=== PATIENT | female | born 1990 | race Caucasian/White ===

== ENCOUNTER 2017-03-03 22:27 | Emergency (ER) | payer MEDICAID ==
--- NOTE | 2017-03-03 22:41 | ER Document Report ---
ED General - General TRAVEL OUTSIDE OF THE [place] IN LAST 30 DAYS: No <YOLANDE WALDROP - Last Filed: 03/04/17 03:09> <CAMERON GROVER - Last Filed: 03/04/17 13:59> <DALLAS KELLEY - Last Filed: 03/04/17 14:28> - General Chief Complaint: Possible Overdose Stated Complaint: OVERDOSE Time Seen by Provider: 03/03/17 22:38 Notes: Patient is a 27-year-old female who presents with complaint of overdosing on melatonin. She said she did this after an argument with her . She says that she was just try to go to sleep. She says she did vomit after taking some the medications. Has been told paramedics that it was a almost completely new bottle of melatonin. The bottle had originially 120 tablets. The says there was probably only 10-20 missing and therefore they suspect she took around 110 mg melatonin tablets. Patient says she does not think it was that many as she just before the bottle to her hand and threw the pills into her mouth. Patient does have history of depression and used to take depression medication for this but she says that she lost her insurance and therefore stopped taking it. She recently got her insurance back but says that she just takes Adderall now and not the depression medication. She herself denies being suicidal. She has no other complaints at this time. (YOLANDE WALDROP) - Related Data Allergies/Adverse Reactions: morphine Allergy (Intermediate, Verified 10/09/15 23:56) Generalized rash Past Medical History - Social History Smoking Status: Unknown if Ever Smoked Frequency of alcohol use: None Drug Abuse: None Family History: Reviewed & Not Pertinent - Past Medical History Cardiac Medical History: Denies: Hx Coronary Artery Disease, Hx Heart Attack, Hx Hypertension Pulmonary Medical History: Denies: Hx Asthma, Hx Bronchitis, Hx COPD, Hx Pneumonia Neurological Medical History: Denies: Hx Cerebrovascular Accident, Hx Seizures Musculoskeltal Medical History: Denies Hx Arthritis - Immunizations Hx Diphtheria, Pertussis, Tetanus Vaccination: Yes <YOLANDE WALDROP - Last Filed: 03/04/17 03:09> Review of Systems <YOLANDE WALDROP - Last Filed: 03/04/17 03:09> <CAMERON GROVER - Last Filed: 03/04/17 13:59> <DALLAS KELLEY - Last Filed: 03/04/17 14:28> - Review of Systems Notes: My Normal Review Basic REVIEW OF SYSTEMS: CONSTITUTIONAL : Denies fever, chills, or sweats. Denies recent illness. EENT: Denies eye, ear, throat, or mouth pain or symptoms. Denies nasal or sinus congestion. CARDIOVASCULAR: Denies chest pain. RESPIRATORY: Denies cough, cold, or chest congestion. Denies shortness of breath, difficulty breathing, or wheezing. GASTROINTESTINAL: Denies abdominal pain. Denies nausea, vomiting, or diarrhea. Denies constipation. Last BM: MUSCULOSKELETAL: Denies neck or back pain or joint pain or swelling. SKIN: Denies rash or skin lesions. NEUROLOGICAL: Denies altered mental status or loss of consciousness. Denies headache. Denies weakness or paralysis or loss of use of either side. Denies problems with gait or speech. Denies sensory or motor loss. PSYCHIATRIC: Depression. Overdose. ALL OTHER SYSTEMS REVIEWED AND NEGATIVE. (YOLANDE WALDROP) Physical Exam <YOLANDE WALDROP - Last Filed: 03/04/17 03:09> <CAMERON GROVER - Last Filed: 03/04/17 13:59> <DALLAS KELLEY - Last Filed: 03/04/17 14:28> - Vital signs Vitals: Pulse Ox 99 03/03/17 23:55 - Notes Notes: General Appearance: Well nourished, alert, cooperative, no acute distress, no obvious discomfort. Patient is awake, alert, and not somnolent. Vitals: reviewed, See vital signs table. Head: no swelling or tenderness to the head Eyes: PERRL, EOMI, Conjuctiva clear Mouth: No decreasd moisture Lungs: No wheezing, No rales, No rhonci, No accessory muscle use, good air exchange bilaterally. Heart: Normal rate, Regular rythm, No murmur, no rub Abdomen: Normal BS, soft, No rigidity, No abdominal tenderness, No guarding, no rebound, no abdominal masses, no organomegaly Extremities: strength 5/5 in all extremities, good pulses in all extremities, no swelling or tenderness in the extremities, no edema. Skin: warm, dry, appropriate color, no rash Neuro: speech clear, oriented x 3, normal affect, responds appropriately to questions. Cranial nerves II through XII are intact. Distal sensation intact. Patient moves all extremities without difficulty. (YOLANDE WALDROP) Course - Laboratory Result Diagrams: 03/03/17 22:44 03/03/17 22:44 <YOLANDE WALDROP - Last Filed: 03/04/17 03:09> - Laboratory Result Diagrams: 03/03/17 22:44 03/03/17 22:44 <CAMERON GROVER - Last Filed: 03/04/17 13:59> - Laboratory Result Diagrams: 03/03/17 22:44 03/03/17 22:44 <DALLAS KELLEY - Last Filed: 03/04/17 14:28> - Re-evaluation Re-evalutation: 03/04/17 03:09 Patient has not been here for over 4 hours. She is been able to sleep but when I wake her up she is not at all somnolent and she looks well. I do not think she took as many melatonin pills as her or her reported. At this time is medically stable for psychiatric evaluation. Patient is voluntary. (YOLANDE WALDROP) - Vital Signs Vital signs: Temp Pulse Resp BP Pulse Ox 14 95/55 L 97 03/04/17 03:01 03/04/17 03:01 03/04/17 03:01 - Laboratory Laboratory results interpreted by me: 03/03/17 03/03/17 03/04/17 22:44 22:44 01:06 Hgb 10.2 L Hct 32.1 L MCV 75 L MCH 24.0 L MCHC 31.8 L RDW 16.2 H Glucose 124 H Total Bilirubin 0.1 L Urine Bilirubin MODERATE H Urine Urobilinogen 4.0 H Salicylates < 1.0 L Acetaminophen < 10 L - EKG Interpretation by Me Additional EKG results interpreted by me: 03/03/17 23:40 EKG is reviewed and interpreted by me. EKG shows normal sinus rhythm with rate of [address] segment elevation or depression. No ischemic T-wave inversions. [place] interval, QRS duration, QTc intervals are within normal range. ( YOLANDE WALDROP) Discharge <YOLANDE WALDROP - Last Filed: 03/04/17 03:09> <CAMERON GROVER - Last Filed: 03/04/17 13:59> <DALLAS KELLEY - Last Filed: 03/04/17 14:28> - Discharge Clinical Impression: Overdose Qualifiers: Encounter type: initial encounter Injury intent: intentional self-harm Qualified Code(s): T50.902A - Poisoning by unspecified drugs, medicaments and biological substances, intentional self-harm, initial encounter Depression Qualifiers: Depression Type: unspecified Qualified Code(s): F32.9 - Major depressive disorder, single episode, unspecified Condition: Stable Disposition: HOME, SELF-CARE Additional Instructions: DEPRESSION: Your evaluation reveals that you have mental depression. While symptoms may be vague, they often include disturbance of sleep, fatigue, loss of appetite , and general loss of interest in life. While depression may be a side effect of drugs, or a reaction to a major change in your life, many cases have no known cause. If depression is acute, and related to a major loss in your life, you can expect it to clear completely with time. If you have been depressed a long time , are prone to repeated bouts of depression or low mood, or have been thinking of suicide, get help. Depression can be treated with anti-depressant medication and counselling. Long-term depression will often take a few weeks to clear, even with appropriate medication. Follow-up care is important. FOLLOW-UP CARE: You are recommended to follow up with an out patient mental health provider of your choice in 3-5 days for your continued mental health treatment.~ If you experience worsening or a significant change in your symptoms, notify the physician immediately or return to the Emergency Department at any time for re- evaluation. Referrals: DALLAS HOLLAND, [Primary Care Provider] - Follow up as needed [facility] [Outside] - Follow up in 3-5 days
[2017-03-03 22:58] LABS: ABSOLUTE LYMPHOCYTES (AUTO) 1.7 10^3/uL (0.5-4.7); ABSOLUTE MONOCYTES (AUTO) 0.6 10^3/uL (0.1-1.4); ABSOLUTE NEUT (AUTO) 5.7 10^3/uL (1.7-8.2); BASOPHILS % (AUTO) 0.5 % (0-2); EOSINOPHILS % (AUTO) 0.6 % (0-6); HEMATOCRIT 32.1 % (36.0-47.0); HEMOGLOBIN 10.2 g/dL (12.0-15.5); MEAN CORPUSCULAR HGB CONC 31.8 g/dL (32.0-36.0); MEAN CORPUSCULAR VOLUME 75 fl (80-97); MONOCYTES % (AUTO) 7.8 % (3-13); PLATELET COUNT 320 10^3/uL (150-450); RED BLOOD COUNT 4.25 10^6/uL (3.72-5.28); RED CELL DISTRIBUTION WIDTH 16.2 % (11.5-14.0); SEGMENTED NEUTROPHILS % (AUTO) 70.1 % (42-78); TOTAL CELLS COUNTED % (AUTO) 100 %; WHITE BLOOD COUNT 8.1 10^3/uL (4.0-10.5)
[2017-03-03 23:10] LABS: ALANINE AMINOTRANSFERASE 24 U/L (9-52); ALBUMIN 4.5 g/dL (3.5-5.0); ALKALINE PHOSPHATASE 47 U/L (38-126); ANION GAP 14 (5-19); ASPARTATE AMINO TRANSFERASE 16 U/L (14-36); BILIRUBIN,DIRECT 0.1 mg/dL (0.0-0.4); BILIRUBIN,TOTAL 0.1 mg/dL (0.2-1.3); BLOOD UREA NITROGEN 10 mg/dL (7-20); CALCIUM 9.6 mg/dL (8.4-10.2); CARBON DIOXIDE 23 mmol/L (22-30); CHLORIDE 104 mmol/L (98-107); GLUCOSE 124 mg/dL (75-110); POTASSIUM 3.8 mmol/L (3.6-5.0); SODIUM 141.1 mmol/L (137-145); TOTAL PROTEIN 7.3 g/dL (6.3-8.2)
[2017-03-03 23:19] LABS: ACETAMINOPHEN < 10 ug/mL (10-30); ALCOHOL < 10 mg/dL (NONE DETECTED); SALICYLATE < 1.0 mg/dL (2.0-20.0)
[2017-03-04] MEDS ORDERED: PROPOFOL INJ 200 MG/20 ML VIAL IV ONE (01:10)
[2017-03-04 01:32] LABS: APPEARANCE,URINE CLEAR; BILIRUBIN,URINE MODERATE (NEGATIVE); COLOR,URINE YELLOW; GLUCOSE, URINE NEGATIVE (NEGATIVE); KETONES,URINE NEGATIVE (NEGATIVE); LEUKOCYTE ESTERASE,URINE NEGATIVE (NEGATIVE); NITRITE,URINE NEGATIVE (NEGATIVE); PROTEIN,URINE NEGATIVE (NEGATIVE); URINE SPECIFIC GRAVITY 1.026
[2017-03-04 01:37] LABS: URINE AMPHETAMINES SCREEN NEGATIVE; URINE BARBITURATES SCREEN NEGATIVE; URINE BENZODIAZEPINES SCREEN NEGATIVE; URINE COCAINE SCREEN NEGATIVE; URINE MARIJUANA (THC) SCREEN NEGATIVE; URINE METHADONE SCREEN NEGATIVE; URINE PHENCYCLIDINE SCREEN NEGATIVE
--- NOTE | 2017-03-04 09:25 | EKG REPORT ---
SEVERITY:- NORMAL ECG - SINUS RHYTHM : Confirmed by: Fiorella Flower 04-Mar-2017 09:23:56
--- NOTE | 2017-03-04 10:33 | ER Document Report ---
Doctor's Note Notes: 03/04/17 10:31 Rounds: Chart reviewed and patient interviewed. Initially sleeping quietly. Vital signs are all normal, except for a blood pressure this morning of 95/55. However, patient is not tachycardic. Her other vital signs have not shown a low blood pressure. Hemoglobin is 10.2 without any evidence of blood loss. Patient denies feeling suicidal. She says she only took the melatonin pills to help her get to sleep. Did not take any other medications. Denies feeling suicidal last night or this morning. Patient appears to be medically stable for transfer or discharge. Cyndie Beasley MD
--- NOTE | 2017-03-04 13:59 | PSYCHOLOGICAL NOTE ---
Psych Note - Psych Note Psych Note: * Reason for Consult: suspected Overdose * Consent Permissions: Rojas Sanchez, spouse, Patient is a 27-year-old female who presents with complaint of overdosing on melatonin. She said she did this after an argument with her . She says that she was just try to go to sleep. She says she did vomit after taking some the medications. The says there was probably only 10-20 missing. Patient says she does not think it was that many. Patient does have history of depression and used to take depression medication for this but she says that she lost her insurance and therefore stopped taking it. She recently got her insurance back but says that she just takes Adderall now and not the depression medication. She herself denies being suicidal. Evaluation: Patient states that she got into an argument and took a "bunch" of melatonin. She states that she just reports some in her hand but denies this was an attempt at suicide. She states she was just trying to get some sleep she has been having difficulty sleeping in the last few days. She continues state that her saw her do this and called EMS. Patient states that she has a history of depression however denies any past suicide attempts or inpatient psychiatric treatment. Patient is alert and oriented to person, place, time and circumstance. Mood is euthymic with congruent affect as evidenced by smiling and laughing with clinician. Patient denies suicide and homicidal ideation. Delusions are absent and behavour is not congruent with intact reality based presentation i.e. organized, linear, rational thinking. Eye contact was well-maintained. Intellectual abilities appear to be within the average range. Attention and concentration were good. Insight, judgment, impulse control are good. Chart Review Conducted: Attending evening physician noted Patient has not been here for over 4 hours. She is been able to sleep but when I wake her up she is not at all somnolent and she looks well. I do not think she took as many melatonin pills as her or her reported. 311 (F32.9) unspecified depressive disorder per history provided by patient Impression\\plan: Patient is considered psychiatrically clear. Patient does not meet IVC criteria per [place] GS 122C. Patient denies suicidal and homicidal ideation. Patient states she took the melatonin to get some sleep, not an attempt at suicide. She reports her thought she took more that she did and called EMS. Patient is recommended to follow up with out patient mental health services. Dr. Rubin was consulted on the care and management of this patient; attending physician is in agreement with recommendations and disposition.
[2017-03-04 14:35] VITALS: BP 105/52
== END 2017-03-04 14:36 | disposition home or self-care (01) ==
LOC: ER 22:27
DX: T50.992A Poisoning by other drugs, medicaments and biological substances, intentional self-harm, initial encounter (principal); F32.9 Major depressive disorder, single episode, unspecified; Z63.0 Problems in relationship with spouse or partner; Z88.5 Allergy status to narcotic agent
CPT/HCPCS: 36415; 80053; 80307; 81001; 85025; 93005; 93010; 99285

== ENCOUNTER 2019-03-18 20:39 | Emergency (ER) | payer BC, MEDICAID ==
--- NOTE | 2019-03-18 21:34 | ER Document Report ---
ED General - General Chief Complaint: Passed Out Prior to Arrival Stated Complaint: FAINTED Time Seen by Provider: 03/18/19 21:24 Primary Care Provider: DALLAS HOLLAND DO [Primary Care Provider] - Follow up as needed Mode of Arrival: Medic Information source: Patient Notes: 29-year-old female arrives by EMS after she was walking in the kitchen and felt dizzy and passed out. She awoke to find her for children and [id number] around her. Patient reports she had symptoms of urinary pressure and therefore went to the bathroom walking on her own with some shaking legs. She did vomit x1 patient reports since October 2017 she been having symptoms of paroxysmal cough and near syncopal episodes. Patient reports for the last 3 years he been taking Adderall for ADHD and also smoking marijuana to help her nerves after going off of Ativan. Patient reports she was passed out for approximately 60 seconds. She is now awake alert oriented x4 and is a good historian. She reports she has had at least 5 vomitings for the last 2 to 3 days. Patient reports she is not and has not missed any periods and has had her tubes tied. Advised her we will still get a urinary hCG. Patient reports the symptoms have been worked up by her PMD to include being on steroids x2 in the past. She says 24 hours after beginning steroids her symptoms jamarcus. As soon as the steroids are completed the symptoms return. TRAVEL OUTSIDE OF THE [place] IN LAST 30 DAYS: No - HPI Onset: Just prior to arrival Onset/Duration: Sudden Quality of pain: No pain Severity: Severe Pain Level: 1 Associated symptoms: Nonproductive cough, Other - She reports both her sister and father have thyroid disease and she has some hypothyroid history. Exacerbated by: Movement Relieved by: Denies Similar symptoms previously: Yes Recently seen / treated by doctor: Yes - And has been seen by her personal doctor and worked up for the symptoms. - Related Data Allergies/Adverse Reactions: morphine Allergy (Intermediate, Verified 10/09/15 23:56) Generalized rash Past Medical History - General Information source: Patient, Emergency Med Personnel - [facility] was initial pr esrobin then patient gave additional history. This was upon presentation to room #1 via [facility] - Social History Smoking Status: Current Some Day Smoker Cigarette use (# per day): Yes - Still smokes marijuana Chew tobacco use (# tins/day): No Smoking Education Provided: Yes Frequency of alcohol use: None Drug Abuse: Marijuana Lives with: Family Family History: Reviewed & Not Pertinent Patient has suicidal ideation: No Patient has homicidal ideation: No - Past Medical History Cardiac Medical History: Denies: Hx Coronary Artery Disease, Hx Heart Attack, Hx Hypertension Pulmonary Medical History: Reports: Hx Asthma Denies: Hx Bronchitis, Hx COPD, Hx Pneumonia Neurological Medical History: Denies: Hx Cerebrovascular Accident, Hx Seizures Renal/ Medical History: Denies: Hx Peritoneal Dialysis Musculoskeletal Medical History: Denies Hx Arthritis Psychiatric Medical History: Reports: Hx Depression - Immunizations Hx Diphtheria, Pertussis, Tetanus Vaccination: Yes Review of Systems - Review of Systems Constitutional: Malaise EENT: No symptoms reported Cardiovascular: No symptoms reported Respiratory: Cough Gastrointestinal: Nausea, Vomiting, Other - Patient is status post gallbladder resection Genitourinary: Other - Patient has a history of HPV but has not been checked for HPV polyps over her laryngeal area; I advised her to follow-up with ear nose throat in order to evaluate for this particular problem considering her sy mptoms. Physical Exam - Vital signs Vitals: Resp Pulse Ox 10 L 100 03/18/19 20:48 03/18/19 20:48 Interpretation: Normal - General General appearance: Appears well - And does have bilaterally dilated pupils 10 mm early In distress: None - HEENT Head: Normocephalic Eyes: Normal Conjunctiva: Normal Cornea: Normal Extraocular movements intact: Yes Eyelashes: Normal Pupils: Dilated Ears: Normal External canal: Normal Tympanic membrane: Normal Sinus: Normal Mouth/Lips: Other - Geographic tongue with bilateral tonsillar edema Pharynx: Normal Neck: Normal - Respiratory Respiratory status: Respiratory distress, Other - Accessible cough - Cardiovascular Rhythm: Regular Heart sounds: Normal auscultation Murmur: No Friction rub: No Solitario's crunch: No - Abdominal Inspection: Normal Distension: No distension Bowel sounds: Normal Tenderness: Nontender - Extremities General upper extremity: Normal inspection General lower extremity: Normal inspection Shoulder: Normal Arm: Normal Elbow: Normal Forearm: Normal Wrist: Normal Hand: Normal Hip: Normal Thigh: Normal Knee: Normal Calf: Normal Ankle: Normal Foot: Normal - Neurological Neuro grossly intact: Yes Cognition: Normal Orientation: AAOx4 Krista Coma Scale Eye Opening: Spontaneous Gwinner Coma Scale Verbal: Oriented G[place] Coma Scale Motor: Obeys Commands Krista Coma Scale Total: 15 Speech: Normal Cranial nerves: Normal Cerebellar coordination: Normal 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 - Psychological Associated symptoms: Normal affect - Skin Skin Temperature: Warm Skin Moisture: Dry Course - Vital Signs Vital signs: Temp Pulse Resp BP Pulse Ox 98.0 F 67 20 111/69 98 03/18/19 20:50 03/18/19 21:25 03/18/19 23:42 03/18/19 23:42 03/18/19 23:42 - Laboratory Result Diagrams: 03/18/19 21:20 03/18/19 21:20 Laboratory results interpreted by me: 03/18/19 03/18/19 21:20 21:20 MCH 26.6 L RDW 15.1 H Sodium 136.9 L Chloride 97 L BUN 5 L - Diagnostic Test Radiology reviewed: Reports reviewed - EKG Interpretation by Me EKG shows normal: Sinus rhythm Rate: Normal Critical Care Note - Critical Care Note Total time excluding time spent on procedures (mins): 90 Comments: Advised patient of her laboratory and x-ray CT findings; here to understand these findings. Discharge - Discharge Clinical Impression: Atypical syncope, Hypotension, Marijuana use Disposition: HOME, SELF-CARE Additional Instructions: Follow-up with ENT because of history of HPV and your coughing sensations. Referrals: DALLAS HOLLAND DO [Primary Care Provider] - Follow up as needed
[2019-03-18 21:37] LABS: ABSOLUTE EOSINOPHILS # (AUTO) 0.3 10^3/uL (0.0-0.6); ABSOLUTE LYMPHOCYTES (AUTO) 1.7 10^3/uL (0.5-4.7); ABSOLUTE MONOCYTES (AUTO) 0.8 10^3/uL (0.1-1.4); ABSOLUTE NEUT (AUTO) 6.4 10^3/uL (1.7-8.2); BASOPHILS % (AUTO) 0.4 % (0-2); EOSINOPHILS % (AUTO) 3.1 % (0-6); HEMATOCRIT 37.4 % (36.0-47.0); HEMOGLOBIN 12.4 g/dL (12.0-15.5); LYMPHOCYTES % (AUTO) 18.2 % (13-45); MEAN CORPUSCULAR HEMOGLOBIN 26.6 pg (27.0-33.4); MEAN CORPUSCULAR HGB CONC 33.2 g/dL (32.0-36.0); MEAN CORPUSCULAR VOLUME 80 fl (80-97); MONOCYTES % (AUTO) 8.4 % (3-13); PLATELET COUNT 312 10^3/uL (150-450); RED BLOOD COUNT 4.67 10^6/uL (3.72-5.28); RED CELL DISTRIBUTION WIDTH 15.1 % (11.5-14.0); SEGMENTED NEUTROPHILS % (AUTO) 69.9 % (42-78); TOTAL CELLS COUNTED % (AUTO) 100 %; WHITE BLOOD COUNT 9.1 10^3/uL (4.0-10.5)
[2019-03-18 21:56] LABS: ALBUMIN 4.7 g/dL (3.5-5.0); ALKALINE PHOSPHATASE 52 U/L (38-126); ANION GAP 13 (5-19); ASPARTATE AMINO TRANSFERASE 27 U/L (14-36); BILIRUBIN,DIRECT 0.3 mg/dL (0.0-0.4); BILIRUBIN,TOTAL 0.3 mg/dL (0.2-1.3); BLOOD UREA NITROGEN 5 mg/dL (7-20); CALCIUM 10.2 mg/dL (8.4-10.2); CARBON DIOXIDE 27 mmol/L (22-30); CHLORIDE 97 mmol/L (98-107); CREATINE KINASE 46 U/L (30-135); GLUCOSE 90 mg/dL (75-110); POTASSIUM 3.6 mmol/L (3.6-5.0)
--- NOTE | 2019-03-18 22:45 | RADIOLOGY REPORT (SQ) ---
EXAM DESCRIPTION: XR CHEST 2 VIEWS COMPLETED DATE/TME: 03/18/2019 21:26 CLINICAL HISTORY: syncopy COMPARISON: None FINDINGS: Cardiac silhouette is within normal limits. EKG leads project over the chest. There is no focal parenchymal or pleural disease. There is no acute osseous process visualized. IMPRESSION: No evidence of acute cardiopulmonary disease.
[2019-03-18 22:49] LABS: APPEARANCE,URINE CLEAR; BILIRUBIN,URINE NEGATIVE (NEGATIVE); COLOR,URINE YELLOW; GLUCOSE, URINE NEGATIVE (NEGATIVE); KETONES,URINE NEGATIVE (NEGATIVE); LEUKOCYTE ESTERASE,URINE NEGATIVE (NEGATIVE); NITRITE,URINE NEGATIVE (NEGATIVE); PROTEIN,URINE NEGATIVE (NEGATIVE); URINE SPECIFIC GRAVITY 1.002; UROBILINOGEN,URINE NEGATIVE mg/dL (<2.0)
[2019-03-18 23:06] LABS: URINE AMPHETAMINES SCREEN NEGATIVE; URINE BARBITURATES SCREEN NEGATIVE; URINE BENZODIAZEPINES SCREEN NEGATIVE; URINE COCAINE SCREEN NEGATIVE; URINE METHADONE SCREEN NEGATIVE; URINE PHENCYCLIDINE SCREEN NEGATIVE
[2019-03-18 23:09] LABS: URINE MARIJUANA (THC) SCREEN UNCONFIRMED POSITIVE
--- NOTE | 2019-03-18 23:47 | RADIOLOGY REPORT (SQ) ---
CT head without contrast on 03/18/2019 at 11:15 PM CLINICAL INDICATION: Syncope TECHNIQUE: Multiple axial images are obtained throughout the head without the administration of contrast. This exam was performed according to our departmental dose-optimization program, which includes automated exposure control, adjustment of the mA and/or kV according to patient size and/or use of iterative reconstruction technique. Total DLP is 1043.77 mGy*cm. COMPARISON: None FINDINGS: There is no hydrocephalus. There is no CT evidence of acute infarct. There is no hemorrhage. There are no abnormal extra-axial fluid collections. There is no mass, mass effect or midline shift. No bony abnormality is noted. IMPRESSION: No acute intracranial abnormality.
--- NOTE | 2019-03-18 23:49 | RADIOLOGY REPORT (SQ) ---
CT cervical spine without contrast on 03/18/2019 11:17 PM CLINICAL INDICATION: Syncope, per protocol for mechanism of injury TECHNIQUE: Multiple axial images are obtained throughout the cervical spine without the administration of contrast. Sagittal and coronal reformatted images are also performed and reviewed. This exam was performed according to our departmental dose-optimization program, which includes automated exposure control, adjustment of the mA and/or kV according to patient size and/or use of iterative reconstruction technique. Total DLP is 480.42 mGy*cm. COMPARISON: None FINDINGS: Reformatted images reveal normal alignment of the cervical spine. Mild degenerative disc disease is noted especially at C4-5 and C6-7.There are no acute fracture lines. There is no prevertebral soft tissue swelling. No definite disc herniation is noted. IMPRESSION: Mild degenerative changes with no acute abnormality.
--- NOTE | 2019-03-19 00:53 | EKG REPORT ---
SEVERITY:- NORMAL ECG - SINUS RHYTHM : Confirmed by: Tresa Streeter MD 19-Mar-2019 00:53:14
[2019-03-19 01:23] VITALS: BP 125/71
== END 2019-03-19 01:25 | disposition home or self-care (01) ==
LOC: ER 20:39
DX: R55 Syncope and collapse (principal); I95.9 Hypotension, unspecified; R11.2 Nausea with vomiting, unspecified; F12.10 Cannabis abuse, uncomplicated; F17.210 Nicotine dependence, cigarettes, uncomplicated; R05 Cough; R60.0 Localized edema; H57.04 Mydriasis; J45.909 Unspecified asthma, uncomplicated; R53.81 Other malaise; F90.9 Attention-deficit hyperactivity disorder, unspecified type; Z79.899 Other long term (current) drug therapy; Z88.6 Allergy status to analgesic agent; Z88.5 Allergy status to narcotic agent
CPT/HCPCS: 36415; 70450; 71046; 72125; 80053; 80307; 81001; 81025; 82550; 82553; 84443; 85025; 93005; 93010; 99291; 99292

== ENCOUNTER 2019-04-02 15:10 | Emergency (ER) | payer BC ==
--- NOTE | 2019-04-02 16:33 | ER Document Report ---
ED Medical Screen (RME) - General Stated Complaint: VOMITING BLOOD Time Seen by Provider: 04/02/19 16:24 Primary Care Provider: DALLAS HOLLAND DO [Primary Care Provider] - Follow up as needed Notes: HPI: 29-year-old female presenting to the emergency department complaining of continued lethargy at home, lower abdominal pain, vomiting every day up to 5 times a day. States the last several days with her vomiting episodes she has seen some specks of blood after vomiting. Has had a continued cough every day over the last 2 to 3 weeks. Sometimes the coughing will make her vomit. She reports weight loss over the last month. Patient states that she was recently on Flagyl and amoxicillin apparently for an upper respiratory infection and for a "swollen uterus". I have greeted and performed a rapid initial assessment of this patient. A comprehensive ED assessment and evaluation of the patient, analysis of test results and completion of the medical decision making process will be conducted by additional ED providers PHYSICAL EXAMINATION: GENERAL: Well-appearing, well-nourished and in no acute distress. HEAD: Atraumatic, normocephalic. EYES: sclera anicteric, conjunctiva are normal. ENT: Moist mucous membranes. NECK: Normal range of motion LUNGS: Normal work of breathing, lung sounds are clear to auscultation HEART: 2+ radial pulses bilaterally, regular rate and rhythm ABD: limited by positioning for exam in triage. No reproducible tenderness on palpation EXTREMITIES: no pitting or edema. No cyanosis. NEUROLOGICAL: No focal neurological deficits. Moves all extremities spontaneously and on command. PSYCH: Normal mood, normal affect. SKIN: Warm, Dry, normal turgor, no rashes or lesions noted. TRAVEL OUTSIDE OF THE [place] IN LAST 30 DAYS: No - Related Data Allergies/Adverse Reactions: morphine Allergy (Intermediate, Verified 10/09/15 23:56) Generalized rash Past Medical History - Past Medical History Cardiac Medical History: Denies: Hx Coronary Artery Disease, Hx Heart Attack, Hx Hypertension Pulmonary Medical History: Reports: Hx Asthma Denies: Hx Bronchitis, Hx COPD, Hx Pneumonia Neurological Medical History: Denies: Hx Cerebrovascular Accident, Hx Seizures Renal/ Medical History: Denies: Hx Peritoneal Dialysis Musculoskeltal Medical History: Denies Hx Arthritis Psychiatric Medical History: Reports: Hx Depression - Immunizations Hx Diphtheria, Pertussis, Tetanus Vaccination: Yes Physical Exam - Vital signs Vitals: Temp Pulse Resp BP Pulse Ox 98 F 88 20 142/98 H 98 04/02/19 15:26 04/02/19 15:26 04/02/19 15:26 04/02/19 15:26 04/02/19 15:26 Course - Vital Signs Vital signs: Temp Pulse Resp BP Pulse Ox 98 F 88 20 142/98 H 98 04/02/19 15:26 04/02/19 15:26 04/02/19 15:26 04/02/19 15:26 04/02/19 15:26 Doctor's Discharge - Discharge Referrals: DALLAS HOLLAND DO [Primary Care Provider] - Follow up as needed
--- NOTE | 2019-04-02 17:00 | RADIOLOGY REPORT (SQ) ---
EXAM DESCRIPTION: CHEST 2 VIEWS COMPLETED DATE/TIME: 04/02/2019 3:42 pm REASON FOR STUDY: cough COMPARISON: None. EXAM PARAMETERS: NUMBER OF VIEWS: two views TECHNIQUE: Digital Frontal and Lateral radiographic views of the chest acquired. RADIATION DOSE: NA LIMITATIONS: none FINDINGS: LUNGS AND PLEURA: No opacities, masses or pneumothorax. No pleural effusion. MEDIASTINUM AND HILAR STRUCTURES: No masses or contour abnormalities. HEART AND VASCULAR STRUCTURES: Heart normal size. No evidence for failure. BONES: No acute findings. HARDWARE: None in the chest. OTHER: No other significant finding. IMPRESSION: NO ACUTE RADIOGRAPHIC FINDING IN THE CHEST. TECHNICAL DOCUMENTATION: JOB ID: [id number] [employer]- All Rights Reserved Reading location - IP/workstation name: [email or web address]
[2019-04-02 17:34] LABS: APPEARANCE,URINE SLIGHTLY-CLOUDY; BILIRUBIN,URINE NEGATIVE (NEGATIVE); COLOR,URINE YELLOW; GLUCOSE, URINE NEGATIVE (NEGATIVE); KETONES,URINE NEGATIVE (NEGATIVE); LEUKOCYTE ESTERASE,URINE SMALL (NEGATIVE); NITRITE,URINE NEGATIVE (NEGATIVE); PROTEIN,URINE NEGATIVE (NEGATIVE); UROBILINOGEN,URINE NEGATIVE mg/dL (<2.0)
[2019-04-02 17:41] LABS: ABSOLUTE EOSINOPHILS # (AUTO) 0.2 10^3/uL (0.0-0.6); ABSOLUTE LYMPHOCYTES (AUTO) 2.7 10^3/uL (0.5-4.7); ABSOLUTE MONOCYTES (AUTO) 0.9 10^3/uL (0.1-1.4); ABSOLUTE NEUT (AUTO) 7.8 10^3/uL (1.7-8.2); BASOPHILS % (AUTO) 0.4 % (0-2); EOSINOPHILS % (AUTO) 1.9 % (0-6); HEMATOCRIT 39.6 % (36.0-47.0); HEMOGLOBIN 13.1 g/dL (12.0-15.5); MEAN CORPUSCULAR HEMOGLOBIN 26.4 pg (27.0-33.4); MEAN CORPUSCULAR HGB CONC 33.2 g/dL (32.0-36.0); MEAN CORPUSCULAR VOLUME 80 fl (80-97); MONOCYTES % (AUTO) 7.8 % (3-13); PLATELET COUNT 341 10^3/uL (150-450); RED BLOOD COUNT 4.98 10^6/uL (3.72-5.28); SEGMENTED NEUTROPHILS % (AUTO) 66.9 % (42-78); TOTAL CELLS COUNTED % (AUTO) 100 %; WHITE BLOOD COUNT 11.7 10^3/uL (4.0-10.5)
[2019-04-02 18:06] LABS: ALBUMIN 4.8 g/dL (3.5-5.0); ALKALINE PHOSPHATASE 52 U/L (38-126); ANION GAP 15 (5-19); ASPARTATE AMINO TRANSFERASE 23 U/L (14-36); BILIRUBIN,TOTAL 0.3 mg/dL (0.2-1.3); BLOOD UREA NITROGEN 7 mg/dL (7-20); CALCIUM 9.6 mg/dL (8.4-10.2); CARBON DIOXIDE 23 mmol/L (22-30); CHLORIDE 101 mmol/L (98-107); GLUCOSE 76 mg/dL (75-110); POTASSIUM 3.7 mmol/L (3.6-5.0); TOTAL PROTEIN 8.1 g/dL (6.3-8.2)
[2019-04-02] MEDS ORDERED: HALOPERIDOL LACTATE INJ 5 MG/1 ML VIAL IV ONE (18:33)
[2019-04-02] MEDS ORDERED: NORMAL SALINE 1000 ML 1,000 ML IV ONE (18:34)
--- NOTE | 2019-04-02 19:32 | ER Document Report ---
ED General - General Chief Complaint: Nausea/Vomiting Stated Complaint: VOMITING BLOOD Time Seen by Provider: 04/02/19 16:24 Primary Care Provider: DALLAS HOLLAND DO [Primary Care Provider] - Follow up as needed TRAVEL OUTSIDE OF THE [place] IN LAST 30 DAYS: No - HPI Notes: Patient is a 29-year-old female who presents emergency department for evaluation of cough and vomiting. She is been coughing for at least 6 months. She has had nausea and vomiting for about 2 months. She states she vomits 4-6 times a day. She states today it had some "specks" of red blood in it. She has been seen here in the past. She was referred to ENT, then pulmonology. Patient was told that it might be secondary to her chronic marijuana use, so she quit smoking marijuana 3 days ago. She states she still continues to vomit. She states she feels lightheaded when she changes position. No hematuria or dysuria, no urinary frequency. She states she did have one dark bowel movement, but denies any alana melena. No hematochezia. She is taking 20 mg of omeprazole daily. She has not seen GI. No fevers or chills. She currently is on Augmentin "for her lungs" and Flagyl "for her uterus." She was seen by gynecology who stated that she had an enlarged uterus and they were going to perform an ultrasound on follow-up. She states she is in a monogamous relationship, does not have any v aginal discharge, and has not had any pregnancies in the last year. - Related Data Allergies/Adverse Reactions: morphine Allergy (Intermediate, Verified 10/09/15 23:56) Generalized rash Home Medications: Flagyl, Amoxicillin, Adderral, Flovent, Omeprazole Past Medical History - General Information source: Patient - Social History Smoking Status: Current Every Day Smoker - Cut down to 2 cigarettes daily Drug Abuse: Marijuana Family History: Reviewed & Not Pertinent Patient has suicidal ideation: No Patient has homicidal ideation: No - Past Medical History Cardiac Medical History: Denies: Hx Coronary Artery Disease, Hx Heart Attack, Hx Hypertension Pulmonary Medical History: Reports: Hx Asthma Denies: Hx Bronchitis, Hx COPD, Hx Pneumonia Neurological Medical History: Denies: Hx Cerebrovascular Accident, Hx Seizures Renal/ Medical History: Denies: Hx Peritoneal Dialysis Musculoskeletal Medical History: Denies Hx Arthritis Psychiatric Medical History: Reports: Hx Depression - Immunizations Hx Diphtheria, Pertussis, Tetanus Vaccination: Yes Review of Systems - Review of Systems Constitutional: No symptoms reported EENT: No symptoms reported Cardiovascular: No symptoms reported Respiratory: See HPI Gastrointestinal: See HPI Genitourinary: No symptoms reported Female Genitourinary: See HPI Musculoskeletal: No symptoms reported Skin: No symptoms reported Neurological/Psychological: No symptoms reported Physical Exam - Vital signs Vitals: Temp Pulse Resp BP Pulse Ox 98 F 88 20 142/98 H 98 04/02/19 15:26 04/02/19 15:26 04/02/19 15:26 04/02/19 15:26 04/02/19 15:26 - Notes Notes: Vital signs reviewed, please refer to chart. Head is normocephalic, atraumatic. Pupils equal round, reactive to light. Neck is supple without meningismus. Heart is regular rate and rhythm. Lungs reveal scant expiratory wheezes. Abdomen is soft, nontender, normoactive bowel sounds throughout. Extremities without cyanosis, clubbing. Posterior calves are nontender. Peripheral pulses are equal. Skin is warm and dry. Patient is awake, alert, neurological exam is nonfocal. Course - Re-evaluation Re-evalutation: 04/02/19 19:31 Patient presents to the emergency department for evaluation. Certainly, it sounds as if she needs further evaluation of this chronic vomiting. It is possible that it is still secondary to her chronic marijuana use. Patient was amenable to treatment with IV Haldol and IV fluids. I suspect her dizziness is secondary to orthostasis, orthostatic vital signs are ordered as well. Her urinalysis fails to reveal any signs of infection. At this point, again I believe that the patient will require gastroenterology referral. She is told to increase her omeprazole to 40 mg daily. I will put her on a short course of sucralfate as well as Zofran at home. She is encouraged to continue her ab stinence from marijuana. 04/02/19 21:29 Patient feeling markedly improved after the Haldol. Her IV fluids were given. She is not orthostatic. At this point I will send her home with Zofran. I smiley green would recommend follow-up with GI if her symptoms persist. She voiced understanding and was discharged. - Vital Signs Vital signs: Temp Pulse Resp BP Pulse Ox 98 F 61 20 105/64 98 04/02/19 15:26 04/02/19 21:13 04/02/19 15:26 04/02/19 21:13 04/02/19 15:26 - Laboratory Result Diagrams: 04/02/19 17:15 04/02/19 17:15 Laboratory results interpreted by me: 04/02/19 04/02/19 17:15 17:15 WBC 11.7 H MCH 26.4 L RDW 15.0 H Ur Leukocyte Esterase SMALL H - Diagnostic Test Radiology reviewed: Reports reviewed Radiology results interpreted by me: 04/02/19 21:29 Chest X-Ray 04/02/19 16:30 IMPRESSION: NO ACUTE RADIOGRAPHIC FINDING IN THE CHEST. Discharge - Discharge Clinical Impression: Cannabinoid hyperemesis syndrome, Nausea & vomiting, Wheezing Condition: Stable Disposition: HOME, SELF-CARE Instructions: Antinausea Medication ([facility]), Vomiting ([facility]) Additional Instructions: Stay well-hydrated. Please seek out gastroenterology referral from your primary care provider if your symptoms persist. Zofran as needed for nausea. Abstain from the use of marijuana. In regards to wheezing, use albuterol inhaler, 1 to 2 puffs every 4-6 hours as needed. Please quit smoking. Return to the emergency department with worsening or new concerning symptoms. Forms: Smoking Cessation Education Referrals: DALLAS HOLLAND DO [Primary Care Provider] - Follow up as needed
[2019-04-02] MEDS ORDERED: ONDANSETRON ODT 4 MG TAB (6 TAB/ER DISP) PO PRN (21:32)
[2019-04-02] MEDS ORDERED: ALBUTEROL SULFATE HFA (90 MCG/PUFF) 8 GM MDI (1 MDI/ER DISP) IH PRN (21:36)
[2019-04-02 23:10] VITALS: BP 102/62
== END 2019-04-02 23:06 | disposition home or self-care (01) ==
LOC: ER 15:10
DX: F12.188 Cannabis abuse with other cannabis-induced disorder (principal); K92.0 Hematemesis; R05 Cough; R42 Dizziness and giddiness; J45.909 Unspecified asthma, uncomplicated; F17.210 Nicotine dependence, cigarettes, uncomplicated; N85.2 Hypertrophy of uterus; Z79.2 Long term (current) use of antibiotics; Z79.899 Other long term (current) drug therapy; Z88.6 Allergy status to analgesic agent; Z88.5 Allergy status to narcotic agent
CPT/HCPCS: 36415; 83690; 84443; 85025; 81025; 80053; 81001; 71046; J1630; J7030; J3490; 96361; 96374; 99283

== ENCOUNTER → 2019-04-24 | Outpatient (CLI) | payer BC ==
[2019-04-24 13:16] LABS: CALCIUM 9.4 mg/dL (8.4-10.2)
[2019-04-25 11:37] LABS: ANTICHROMATIN AB <0.2 AI (0.0-0.9); CENTROMERE B AB <0.2 AI (0.0-0.9); JO-1 ANTIBODY (ANACOMP) <0.2 AI (0.0-0.9)
== END ==
LOC: OD 11:22
PROVIDERS: ATTEND Internal Medicine Pulmonary Disease
DX: R05 Cough (principal); R94.2 Abnormal results of pulmonary function studies; Z83.49 Family history of other endocrine, nutritional and metabolic diseases
CPT/HCPCS: 36415; 81291; 82164; 82310; 82785; 85652; 86003; 86021; 86225; 86235; 86431; 86615; 86698

== ENCOUNTER → 2019-05-15 | Outpatient (CLI) | payer BC ==
--- NOTE | 2019-05-15 08:32 | ST Modified Barium Swallow ---
Recommendation - Recommendations Recommendations: Recommend regular solids and thin liquid. Patient likely to benefit from esophageal precautions (stay sitting up for approximately 30 minutes following intake). No speech therapy indicated for swallow function. Medical Diagnoses - Medical Diagnoses Other Medical Diagnoses/Co-Morbidities: asthma, potential GERD, potential COPD - ICD-10 Tx Diagnosis Coding (1) Cough ICD-10 Code(s): R05 - COUGH ST Modified Barium Swallow - General Date: 05/15/19 Referring Physician: Juancarlos Risks/Precautions: None Date of Onset: 08/28/16 - approximate onset Reason for Referral: chronic cough, worsens with PO - History -: Medical - Patient referred by Dr Bauer with a diagnosis of cough, and secondary diagnosis of dysphagia unspecified and chief complaint of asthma. Patient past medical history includes moderate persistent asthma, depression, ADHD, pneumonia (most recent in 2017), and tobacco abuse. Patient reports coughing fits throughout day, with worsened coughing following eating/drinking. Patient reports globus sensation on 6/10 swallows of PO. Patient reports potential GERD and COPD, but says that is why they are completing further testing. Medications: Patient reports pill for stomach acid, pill for astma, 2 inhalers, 2 breathing treatments, and adderall. - Functional Status Prior Functional Status: INDEPENDENT: ADL - independent, IADL - independent - Subjective Patient/caregiver goal(s): r/o aspiration Cognitive-Linguistic Function: WNL Speech Intelligibility: WNL Current Nutritional Means: PO Current PO diet: Regular Current symptoms: Coughing Pain: 4/5 - lower back - Objective Assessment: Upright - Food Trials Used Food trials used: Thin liquids, Pureed, Regular The patient: Was Able to Self Feed - Oral-Motor Skills Dentition: Full Velo-pharyngeal function: Not assessed Laryngeal Function: clear voicing - Assessment Oral prep: Normal Labial closure: Adequate Leakage: None Mastication: Adequate Lingual Movement: Normal Oral stage: Normal for this Procedure - Pharyngeal Stage Initiation of Pharyngeal Stage Reflex: Normal Decreased laryngeal elevation: No Reduced Velopharyngeal Closure: no Reduced pressure generation: No reduced tongue-based retraction: No Pre-swallow pooling in valleculae: None Pre-Swallow pooling in pyriforms: None Reduced Thyro-Hyoid approximation: No Reduced epiglottic excursion: No Reduced pharyngeal peristalsis/contraction: No Post-swallow residulas vallecular: Mild Post-Swallow residuals in pyriforms: Mild Post-Swallow Residuals: no residuals Reduced Cricopharyngeal opening: No Pharyngeal Stage Comments: Patient presents with swallow within normal limits for trials tested. No aspiration or penetration seen despite challenging with consecutive straw sips of thin liquid. Patients oral phase was unremarkable. Recommend regular solids and thin liquid. Patient likely to benefit from esophageal precautions (stay sitting up for approximately 30 minutes following intake). No speech therapy indicated for swallow function. - Esophageal Stage Cricopharyngeal Function: Normal Upper Esophageal Transit: Normal Esophageal stasis/dysmotility: No Cervical Osteophytes noted: No - Fall Risk Assessment Medications/Conditions that increase fall risks include: Antidepressants, sedatives, anti-arrhythmic, diuretic, benzodiazipenes, neuroleptics. BP regulation problems, cardiac problems, balance or gait deficits, neurological problems. Is patient considered at risk for falls: no Fall Risk Actions Taken: No action needed - Behavioral Observations During evaluation process patient: was pleasant Mental Status: Alert & Oriented X3 - Treatment / Educational Needs: Treatment/Education Needs: Treatment consisted of patient education on the role of the Speech Pathologist. Patient's plan of care and golas were communicated as well as scheduling and attendance policies. Recommendations for initial home program were shared. Patient demonstrated understanding and verbalized agreement. - Impression/Summary Laryngeal Penetration: No Tracheal Aspiration: no Patient presents with: Normal swallow at eval Risk of Aspiration: Minimal Risk of nutritional compromise: None - Recommendations NPO: no Solid diet recommendations: Regular Liquid Diet Modification: Thin Strict aspiration precautions: No Pt/Family education and followup with MD: Yes Dysphagia therapy with ORIGINATION SPECIALIST: no Reflux Precautions: Taught to Patient Recommended techniques: Fully Upright During Meal Supervision: Independent Information, Precautions and Recommendations: Patient (Verbal) - Time Total Time: 20 - Plan of Care Strategies to optimize patient understanding include:: ongoing assessment of educational needs, implementation of educational strategies, and re-education. - - -: Thank you for the opportunity to work with this patient and his/her family. Should you have any questions about this patient's plan or progress, I can be reached at [phone].
--- NOTE | 2019-05-15 11:54 | RADIOLOGY REPORT (SQ) ---
EXAM DESCRIPTION: COOKIE SWALLOW COMPLETED DATE/TIME: 05/15/2019 8:44 am REASON FOR STUDY: COUGH R05 COUGH coughing with meals oropharyngeal dysphagia shortness of breath g astroesophageal reflux disease COMPARISON: None. TECHNIQUE: Videofluoroscopic swallowing examination was performed in conjunction with speech patholo gy. Videofluoroscopic imaging was obtained and reviewed and these are the findings: No laryngeal penetration or aspiration seen. Under fluoroscopic guidance, patient ingested effervescent granules followed by thick and thin barium . Fluoroscopic spot images and routine radiographic images acquired and stored on PACS. 12 MM BARIUM TABLET GIVEN: Yes. No significant delay in passage. LIMITATIONS: None. FLUOROSCOPY TIME: FLUORO TIME: 1 minutes 55 seconds of fluoroscopy was used. 7 images saved to PACS. FINDINGS: NEUROMUSCULAR COORDINATION OF SWALLOW: Normal. No aspiration. ESOPHAGEAL MOTILITY: Normal peristalsis. No esophageal spasm. ESOPHAGEAL MUCOSA: Normal mucosa without masses or ulceration. GASTRO-ESOPHAGEAL JUNCTION: Mild gastroesophageal reflux. 12 mm barium tablet passed through the GE junction without delay NON-GI TRACT STRUCTURES: No significant finding. OTHER: No other significant finding. IMPRESSION: MILD GASTROESOPHAGEAL REFLUX OTHERWISE UNREMARKABLE BARIUM SWALLOW AND COOKIE SWALLOW. COMMENT: Quality ID [id number]: Final reports for procedures using fluoroscopy that document radiation exp osure indices, or exposure time and number of fluorographic images (if radiation exposure indices are not available) TECHNICAL DOCUMENTATION: JOB ID: [id number] 2010 [employer]- All Rights Reserved Reading location - IP/workstation name: [id number]
== END ==
LOC: RAD 07:36
PROVIDERS: ATTEND Internal Medicine Pulmonary Disease
DX: R05 Cough (principal)
CPT/HCPCS: 74230

== ENCOUNTER → 2019-05-17 | Outpatient (CLI) | payer BC | LOC: OD 11:56 | PROVIDERS: ATTEND Internal Medicine Pulmonary Disease | DX: R05 Cough (principal) | CPT/HCPCS: 36415; 86615; 87070; 87205 ==

== ENCOUNTER → 2019-07-06 | Outpatient (CLI) | payer BC ==
--- NOTE | 2019-07-06 14:23 | ER RDC ASSESSMENT REPORT ---
Intake - In the Last 14 days Have you traveled outside [place]?: No Have you been in close contact with someone CONFIRMED: Yes Worked in Healthcare?: No - Symptoms Subjective Fever([place] feverish): No Chills: No Muscule Aches: No Runny Nose: No Sore Throat: No Cough (New or worsening chronic cough): Yes --How many day(s)?: Has been treated for pneumonia since October Shortness of breath: Yes Nausea or Vomiting: Yes Headache: No Abdominal Pain: No Diarrhea(3 or more loose stools in last 24 hours): No - Do you have any of the following Chronic lung disease: Asthma or emphysema or COPD: No Cystic Fibrosis: No Diabetes: No High Blood Pressure: No Cardiovascular Disease: No Chronic Kidney Disease: No Chronic Liver Disease: No Chronic blood disorder like Sickle Cell Disease: No Weak immune system due to disease or medication: No Neurologic condition that limits movement: No Developmental delay - Moderate to Severe: No Recent (within past 2 weeks) or current : No Morbid Obesity (>100 pounds over ideal weight): No Obesity Comment: Height 5 feet 6 inches weight 182 pounds Other Comment: Patient reports a history of hypothyroidism and anemia - Objective Temperature: 99.1 F Pulse Rate: 100 Respiratory Rate: 20 Blood Pressure: 110/65 O2 Sat by Pulse Oximetry: 95 Objective: Given above, testing performed: If Testing Performed: Test Specimen Type Sent to General - General Information source: Patient Notes: Patient here at [facility] for COVID testing. Has been treated for pneumonia since January with persistent cough since that time. Has been on inhalers and nebulizer treatments. Patient reports x-rays and CT scans have shown a nodule in the lungs. Patient has a reported appointment with GI to rule out reflux as a source of cough. Does plan to have a follow-up in [address] scan[address] PCP Dr. Ocampo with [facility] has instructed the patient to rule out COVID. - Related Data Allergies/Adverse Reactions: morphine Allergy (Intermediate, Verified 10/09/15 23:56) Generalized rash Past Medical History - Social History Smoking Status: Current Every Day Smoker Cigarette use (# per day): Yes - Patient smokes a pack a day. Encouraged to stop smoking Family History: Reviewed & Not Pertinent - Past Medical History Cardiac Medical History: Denies: Hx Coronary Artery Disease, Hx Heart Attack, Hx Hypertension Pulmonary Medical History: Reports: Hx Asthma - ?, Hx Bronchitis, Hx Pneumonia - HX Denies: Hx COPD Neurological Medical History: Denies: Hx Cerebrovascular Accident, Hx Seizures Renal/ Medical History: Denies: Hx Peritoneal Dialysis Musculoskeletal Medical History: Denies Hx Arthritis Psychiatric Medical History: Reports: Hx Depression Physical Exam - General General appearance: Appears well, Alert In distress: None Notes: PHYSICAL EXAMINATION: GENERAL: Well-appearing and in no acute distress. HEAD: Atraumatic, normocephalic. EYES: sclera anicteric, conjunctiva are normal. ENT: nares patent. Moist mucous membranes. NECK: Normal range of motion, supple without lymphadenopathy LUNGS: CTAB and equal. No wheezes rales or rhonchi. Resp even and unlabored. Occassional dry cough noted. expiratory wheeze noted bilaterally and especially to left posterior upper lobe. HEART: Regular rate and rhythm without murmurs ABDOMEN: Soft, nontender, normal bowel sounds, no guarding. EXTREMITIES: Normal range of motion, no pitting edema. No cyanosis. NEUROLOGICAL: Normal speech. PSYCH: Normal mood, normal affect. SKIN: Warm, Dry, normal turgor, - Respiratory Respiratory status: No respiratory distress Breath sounds: Nonproductive cough, Wheezing Diagnostic Results Laboratory Results: Patient informed of negative rapid strep and negative rapid flu results. pending strep culture pending COVID testing results. Patiet provided with instruction regarding COVID to include: As a person under investigation for Covid 19, the [place] department of Health and Human Services, division of public health advises you to adhere to the following guidance until your test results are reported to you. If your test result is positive, you will receive additional information from your provider and your local health department at that time. Remain at home until you are cleared by the health provider or public health authorities. Keep a log of visitors to your home, notify any visitors to your home of your isolation status. If you plan to move to a new address or leave the [facility], notify the local health department in your County. Call your doctor or seek care if you have an urgent medical need. Before seeking medical care, call ahead to get instructions from the provider before arriving at the medical office clinic or hospital. Notify them that you are being tested for the virus that causes Covid 19 so that arrangements can be made, as necessary, to prevent transmission to others in the healthcare setting. Next, notify the local health department in your county. If a medical emergency arises and you need to call 911, inform the first responders that you are being tested for the virus that causes Covid 19. Next, notify the local health department in your county. Patient Education/Counseling Counseling/Education: Patient presents with upper respiratory symptoms worrisome for possible Covid 19. Patient does not have emergency worring symptoms such as difficulty breathing, shortness of breath, chest pain, pressure, confusion or cyanosis. Patient appears suitable for discharge. Patient instructed to follow up with Dr. Ocampo with [facility] [place]. Instructed to go to ED for persistent or worsening symptoms. Patient's vital signs are stable and patient is nontoxic in appearance. Good return precautions have been discussed with patient, patient verbalized understanding and is agreeable with discharge plan of care at this time. Guidance for worsening S/SX: Patient instructed to stop smoking RDC Discharge - Discharge Clinical Impression: COVID - 19 SCREENING Condition: Stable Disposition: Home; Selfcare
[2019-07-06 14:27] LABS: A TYPE INFLUENZA AG NEGATIVE (NEGATIVE); B INFLUENZA AG NEGATIVE (NEGATIVE)
[2019-07-06 14:29] VITALS: BP 110/65
== END ==
LOC: RDC 13:12
PROVIDERS: ATTEND Nurse Practitioner Family
DX: Z20.828 Contact with and (suspected) exposure to other viral communicable diseases (principal); R05 Cough; R06.02 Shortness of breath; R11.2 Nausea with vomiting, unspecified; E03.9 Hypothyroidism, unspecified; Z87.01 Personal history of pneumonia (recurrent); D64.9 Anemia, unspecified; R91.1 Solitary pulmonary nodule; F17.210 Nicotine dependence, cigarettes, uncomplicated; Z88.6 Allergy status to analgesic agent
CPT/HCPCS: 87070; 87635; 87804; 87880; 99211

== ENCOUNTER 2019-07-13 07:30 | Day surgery (SDC) | payer BC ==
[2019-07-13] MEDS ORDERED: EPINEPHRINE INJ 1 MG/10 ML DISP.SYRIN ONE (08:43)
[2019-07-13] MEDS ORDERED: PROPOFOL INJ 200 MG/20 ML VIAL IV ONE (08:44)
--- NOTE | 2019-07-13 10:04 | Operative Report ---
Operative Report DATE OF SURGERY: 07/13/19 Operative Report: The risks benefits and alternatives of the procedure explained to the patient in detail and informed consent is obtained.A GIF Olympus video scope was inserted into the patient's mouth and hypopharynx, the esophagus is identified intubated and insufflated the scope was then advanced through the esophagus stomach and duodenum, retroflexion maneuver is done, the esophagus stomach and first and second portions of the duodenum examined PREOPERATIVE DIAGNOSIS: Hematemesis POSTOPERATIVE DIAGNOSIS: Healed Idalia-Lee tear. Esophageal ring status post biopsy rule out eosinophilic esophagitis. Gastritis status post biopsy OPERATION: EGD with biopsy SURGEON: BARB ALLEN ANESTHESIA: LMAC TISSUE REMOVED OR ALTERED: As noted above. COMPLICATIONS: None. ESTIMATED BLOOD LOSS: None. INTRAOPERATIVE FINDINGS: As noted above. PROCEDURE: Patient tolerated the procedure well. No immediate postprocedure complications are noted. Patient is discharged in good condition. Discharge date 07/13/2019. Discharge diet: Regular. Discharge activity: Regular. 2 to 3-week follow-up to discuss findings. Patient is instructed to call the office or proceed to the emergency room should there be any further problems or questions. Wait on the pathology.
[2019-07-13 10:52] VITALS: BP 118/72
== END 2019-07-13 09:56 | disposition home or self-care (01) ==
LOC: OROUT 07:30
PROVIDERS: ATTEND Internal Medicine Gastroenterology
DX: K29.50 Unspecified chronic gastritis without bleeding (principal); K92.0 Hematemesis; F17.210 Nicotine dependence, cigarettes, uncomplicated; J45.909 Unspecified asthma, uncomplicated; D64.9 Anemia, unspecified; Z79.899 Other long term (current) drug therapy; Z88.5 Allergy status to narcotic agent
CPT/HCPCS: 43239; 88305 ×2; 00731; J2704; 731; J0171